=== PATIENT | male | born 1990 | race African-American/Black ===

== ENCOUNTER 2023-06-12 13:06 | Emergency (ER) | payer SELFPAY ==
[2023-06-12 14:02] VITALS: BP 117/83; PULSE 106; RESP 16; TEMP 36.4; O2SAT 96; BMI 32.5
--- NOTE | 2023-06-12 14:05 | ED.GENADULT ---
HPI - General Adult General Chief complaint: Psychiatric Symptoms Stated complaint: Depression Time Seen by Provider: 06/12/23 14:32 Source: patient Mode of arrival: ambulatory Limitations: other (Alcohol intoxication) History of Present Illness HPI narrative: 33-year-old male who presents emergency department for evaluation of depression. The patient came to the emergency department voluntarily at his 's request. He states that his mother did recently and this has made him depressed. Denies being suicidal or homicidal. He does admit to drinking alcohol by he states that he is not interested in getting into a rehab program. He did tell me that he wants to continue to drink and that he is an adult and that if he wants to drink no in can stop him. I did ask him why he came to the hospital and he told me that his insisted that he come and get some help for his depression. The patient at this time does not want to get undressed and is refusing examination. At triage, he denied auditory or visual hallucinations. The provider triage did document that the patient did call the crisis line for worsening depression and was told that respite care could be obtained through the emergency department however he does not want to stay in the emergency department this time and wants to go home. Related Data Allergies Allergy/AdvReac Type Severity Reaction Status Date / Time No Known Allergies Allergy Verified 06/12/23 14:06 Review of Systems Review of Systems: Yes all other systems are reviewed and are negative [facility] Past Medical History [facility] Narrative: Past medical history: None. Social history: The patient does admit to drinking alcohol today and drinking daily. He states that he is not from this area and that his is a traveling nurse and he is staying this area with his family while his is here working. Physical Exam ED Vital Signs: Vital Signs - 24 hr 06/12/23 14:02 Temperature 97.6 F Pulse Rate 106 H Respiratory Rate 16 Blood Pressure 117/83 Pulse Oximetry 96 Oxygen Delivery Method Room Air BMI result Body Mass Index 32.5 Vital signs were normal except for an elevated heart rate of 106. Exam: General: Awake, alert in no distress. Patient does answer questions appropriately, he does perseverate on not wanting to be here and that this is not the place where he wants to get help from Head: Normocephalic, atraumatic Chest: He does not appear to be to tachypneic or having any respiratory distress Neuro: Patient is oriented to person and place, cranial nerves appear to be intact, patient moves also extremities symmetrically, he does not have slurred speech but does appear to be intoxicated, is able to walk without any difficulty. Psych: Patient is oriented to person, he is aware that he is in a hospital and that he came here voluntarily for depression. He clearly stated that he is not suicidal or homicidal. He also states he has not tried to harm himself in the past. He states that his mother in these depressed. He admits to drinking alcohol but states that is not interested in stopping. He is aware that he is intoxicated. Course Course Course Narrative: This is an RME: Additional HPI, ROS, PE not included below will be deferred to primary provider. 33 yo m presents w/ depression states mom recently . has been having worsening depression called the crisis line and was told he would be a agood candidate for respit. Patient denies si and hi . denies a/v/t hallucination. denies medical complaints Pe- bizzare affect plan- med clearance, care team evaluation Medical Decision Making Medical Decision Making MDM Narrative: 33-year-old male who presents emergency department for evaluation of depression most likely triggered by his mother's recent . It was reported by provider at triage that the patient called the crisis line and was advised to go to the hospital and get into respite for further treatment of his depression. However since arriving in the hospital, the patient does not want to stay, he states that he wants to go home. He does admit to drinking alcohol and he is aware that he is acutely intoxicated. He adamantly denies being suicidal or homicidal and he states he has never tried to harm himself in the past. The patient is refusing further treatment. At this time, I believe that the patient is competent to make decisions despite being intoxicated and he is able to understand the consequences of his decisions in the consequences of leaving the hospital intoxicated. The patient cannot be placed on a Section 12 at this time. I did try to encourage him to stay and talk to our crisis counselors and a recovery counselor is however he is insisting on leaving therefore he was discharged. I did encourage him to follow-up with [facility] as an outpatient to try to get help with his depression and his alcohol use disorder. Differential Diagnosis Differential Diagnoses: The differential diagnosis associated with the presentation includes Differential diagnosis includes was not limited to depression, anxiety, acute alcohol intoxication, alcohol use disorder, suicidal ideation, homicidal ideation Discharge Plan Discharge Clinical Impression: Depression, Alcohol intoxication Patient Disposition: Home, Self-Care Additional Instructions: At this time, you told me that you do not want to hurt yourself or hurt anyone else therefore we cannot keep you here against your will. You do appear to be intoxicated and I recommended that you stay here till you get sober however you want to go home at this time in you understand the risks of leaving the hospital why your intoxicated Please call [facility] ([facility]) . This is an outpatient service that can help you with depression and even help you if you want to stop drinking. Follow-up with your doctor in 2 days. Please return to the emergency department if your symptoms get worse or if you develop any symptoms that are concerning to you. Interventions: [place]-Suicide Risk Severity Scale Last Done: 06/12/23 14:46 ED Discharge Assessment Last Done: 06/12/23 14:47
== END 2023-06-12 15:00 | disposition home or self-care (01) ==
LOC: HO.ED 15:02
PROVIDERS: Emergency Provider Emergency Medicine Emergency Medical Services
DX: F32.A Depression, unspecified (principal); F10.920 Alcohol use, unspecified with intoxication, uncomplicated; Y90.9 Presence of alcohol in blood, level not specified; Z72.89 Other problems related to lifestyle; Z63.4 Disappearance and death of family member
CPT/HCPCS: 99283

== ENCOUNTER 2023-06-12 21:26 | Inpatient (IN) | payer SELFPAY ==
[2023-06-12 21:41] VITALS: BP 134/65; PULSE 112; RESP 20; TEMP 36.7; O2SAT 97; BMI 31.7
--- NOTE | 2023-06-12 21:59 | ED.PSYCH ---
HPI - Psych General Chief Complaint: Psychiatric Symptoms Stated Complaint: depression, SI Time Seen by Provider: 06/12/23 21:52 Source: patient Mode of arrival: ambulatory Limitations: no limitations History of Present Illness HPI Narrative: Patient comes to the emergency room complaining of suicidal ideation, alcohol intoxication. Patient was seen here earlier today, patient refused care and left. Now his back admitting that he has suicidal thoughts. Patient states that he has no psychiatric history, patient recently lost his mother, since then, patient has had recurrent depression, has been drinking alcohol and is planning to overdose. Patient denies any falls, no injuries. Patient is visiting from out of state, patient is in [place] Related Data Allergies Allergy/AdvReac Type Severity Reaction Status Date / Time No Known Allergies Allergy Verified 06/12/23 14:06 Review of Systems Review of Systems: Constitutional : No Weight loss, No Fever, No Chills, No Night Sweats, No Fatigue, No Malaise ENT/Mouth : No Hearing loss, No Ear Pain, No Nasal Congestion, No Sinus Pain, No Hoarseness, No sore throat, No Rhinorrhea, No Swallowing Difficulty Eyes: No Eye Pain, No Swelling, No Redness, No Foreign Body, No Discharge, No Vision Changes Cardiovascular : No Chest Pain, No SOB, No Dyspnea on Exertion, No Orthopnea, No Edema, No Palpitations Respiratory : No Cough, No Sputum, No Wheezing, No Smoke Exposure, No Dyspnea Gastrointestinal : No Nausea, No Vomiting, No Diarrhea, No Constipation, No abdominal Pain, No Hematochezia, No Melena Genitourinary : no irregular bleeding, No Dysuria, No Urinary Frequency, No Hematuria, No Urinary Incontinence, No Urgency, No Flank Pain, No Urinary Flow Changes, No Hesitancy Musculoskeletal : No joint pain, No Myalgias, No Joint Swelling Skin : No Skin Lesions, No rash Neuro : No Weakness, No Numbness, No Paresthesias, No Loss of Consciousness, No Dizziness, No Headache Psych : Complaining of anxiety, depression, suicidal ideation Heme/Lymph: No Bruising, No Bleeding,No Lymphadenopathy Endocrine : No Polyuria, No Polydipsia, No Temperature Intolerance PMFSH Social History Social History Advance Directives: No Advance Directives Information Provided: No Physical Exam Vital Signs: Vital Signs: Last Vital Signs Temp 98.0 F 06/12/23 21:41 Pulse 112 H 06/12/23 21:41 Resp 20 06/12/23 21:41 BP 134/65 06/12/23 21:41 Pulse Ox 97 06/12/23 21:41 O2 Del Method Room Air 06/12/23 21:41 BMI result Body Mass Index 31.7 Const: Other: Appearance: Alert. Oriented X3. No acute distress. Intoxicated but coherent Eyes: Pupils equal, round and reactive to light. ENT: Pharynx normal. Neck: Normal inspection. Neck supple. No lymph nodes noted. No crepitus CVS: Normal heart rate and rhythm. Pulses normal. Normal S1 and S2 Respiratory: No respiratory distress. Breath sounds normal. No Wheezing. No rales Abdomen: Soft and nontender. No rigidity. No distention. Skin: Skin warm and dry. Normal skin color. Normal skin turgor. Extremities: No lower extremity edema. No Lacerations. No Rash Neuro: Oriented X 3. No motor deficit. No sensory deficit. Moving all extremities. No slurred speech. CN 2 through 12 grossly intact Psych: calm, cooperative, normal affect Course Course Course Narrative: -all of patient's labs pending -care team consult pending -patient is on a Section 12 -physician observation started at 22:00 Medical Decision Making Medical Decision Making MDM Narrative: -the care team evaluated the patient, patient is on a Section 12, going inpatient, bed search Lab Data 06/12/23 22:06 06/12/23 22:06 Labs: Lab Results 06/12/23 06/12/23 06/12/23 Range/Units 22:05 22:06 22:06 WBC 6.0 (4.8-10.8) X10*3/uL RBC 5.19 (4.60-5.80) X10*6/uL Hgb 15.2 (14.0-18.0) g/dl Hct 46.2 (42.0-52.0) % MCV 89.0 (80.0-98.0) fL MCH 29.3 (27.0-33.0) pg MCHC 32.9 (31.0-36.0) g/dl RDW 11.2 (11.0-16.0) % Plt Count 316 (160-400) X10*3/uL MPV 10.7 (9.4-12.4) fL Absolute Nucleated RBC 0.000 (0.0-0.012) X10*3/uL Nucleated RBC % (auto) 0.0 (0.0-0.2) /100WBC Sodium 141 (135-145) mmol/L Potassium 4.1 (3.3-5.1) mmol/L Chloride 106 (96-108) mmol/L Carbon Dioxide 23 (22-29) mmol/L Anion Gap 16 (12-20) BUN 12 (9-16) mg/dL Creatinine 0.97 (0.5-1.4) mg/dL Estim Creat Clear Calc 148.1 Estimated GFR > 60 Random Glucose 85 (60-115) mg/dL Calcium 9.4 (8.4-10.2) mg/dL Total Bilirubin 0.4 (0.0-1.0) mg/dL AST 21 (5-37) U/L ALT 25 (0-40) U/L Alkaline Phosphatase 50 (39-117) U/L Total Protein 7.9 (6.5-8.0) g/dL Albumin 4.6 (3.5-5.0) g/dL Urine Opiates Screen (Not Detect) Urine Fentanyl Screen (Not Detect) Ur Barbiturates Screen (Not Detect) Ur Phencyclidine Scrn (Not Detect) Ur Amphetamines Screen (Not Detect) U Benzodiazepines Scrn (Not Detect) Urine Cocaine Screen (Not Detect) U Marijuana (THC) Screen (Not Detect) Ethyl Alcohol mg/dL COVID-19 (NAIF) Negative (Negative) COVID-19 Clin Com See Note 06/12/23 06/12/23 Range/Units 22:06 22:06 WBC (4.8-10.8) X10*3/uL RBC (4.60-5.80) X10*6/uL Hgb (14.0-18.0) g/dl Hct (42.0-52.0) % MCV (80.0-98.0) fL MCH (27.0-33.0) pg MCHC (31.0-36.0) g/dl RDW (11.0-16.0) % Plt Count (160-400) X10*3/uL MPV (9.4-12.4) fL Absolute Nucleated RBC (0.0-0.012) X10*3/uL Nucleated RBC % (auto) (0.0-0.2) /100WBC Sodium (135-145) mmol/L Potassium (3.3-5.1) mmol/L Chloride (96-108) mmol/L Carbon Dioxide (22-29) mmol/L Anion Gap (12-20) BUN (9-16) mg/dL Creatinine (0.5-1.4) mg/dL Estim Creat Clear Calc Estimated GFR Random Glucose (60-115) mg/dL Calcium (8.4-10.2) mg/dL Total Bilirubin (0.0-1.0) mg/dL AST (5-37) U/L ALT (0-40) U/L Alkaline Phosphatase (39-117) U/L Total Protein (6.5-8.0) g/dL Albumin (3.5-5.0) g/dL Urine Opiates Screen Not Detected (Not Detect) Urine Fentanyl Screen Not Detected (Not Detect) Ur Barbiturates Screen Not Detected (Not Detect) Ur Phencyclidine Scrn Not Detected (Not Detect) Ur Amphetamines Screen Not Detected (Not Detect) U Benzodiazepines Scrn Not Detected (Not Detect) Urine Cocaine Screen Not Detected (Not Detect) U Marijuana (THC) Screen Not Detected (Not Detect) Ethyl Alcohol 125 mg/dL COVID-19 (NAIF) (Negative) COVID-19 Clin Com Discharge Plan Discharge Clinical Impression: Depression Patient Disposition: Still a Patient
[2023-06-12 22:00] VITALS: BP 134/65; PULSE 112; RESP 20; TEMP 36.7; O2SAT 97
[2023-06-12 22:18] LABS: Hematocrit 46.2 % (42.0-52.0); Hemoglobin 15.2 g/dl (14.0-18.0); Mean Corpuscular HGB Conc 32.9 g/dl (31.0-36.0); Mean Corpuscular Hemoglobin 29.3 pg (27.0-33.0); Mean Platelet Volume 10.7 fL (9.4-12.4); Platelet Count 316 X10*3/uL (160-400); Red Blood Count 5.19 X10*6/uL (4.60-5.80); Red Cell Distribution Width 11.2 % (11.0-16.0)
[2023-06-12 22:28] LABS: Amphetamine Screen Urine Not Detected (Not Detect); Barbiturates, Urine Not Detected (Not Detect); Benzodiazepines Screen Urine Not Detected (Not Detect); Cannabinoid Screen Urine Not Detected (Not Detect); Cocaine Screen Urine Not Detected (Not Detect); Ethanol 125 mg/dL; Fentanyl, urine Not Detected (Not Detect); Opiate Screen Urine Not Detected (Not Detect); Phencyclidine Screen Urine Not Detected (Not Detect)
[2023-06-12 22:28] LABS: COVID-19 Test Negative (Negative); IDNOW Serial# BCCEAD1C
[2023-06-12 22:30] LABS: Alanine Aminotransferase 25 U/L (0-40); Albumin Level 4.6 g/dL (3.5-5.0); Alkaline Phosphatase 50 U/L (39-117); Anion Gap 16 (12-20); Aspartate Amino Transferase 21 U/L (5-37); Bilirubin Total 0.4 mg/dL (0.0-1.0); Blood Urea Nitrogen 12 mg/dL (9-16); Calcium 9.4 mg/dL (8.4-10.2); Carbon Dioxide 23 mmol/L (22-29); Chloride 106 mmol/L (96-108); Creatinine Clr Calc Pharmacy 148.1; Estimated Glomerular Filt Rate > 60; Glucose Random 85 mg/dL (60-115); Potassium 4.1 mmol/L (3.3-5.1); Sodium 141 mmol/L (135-145); Total Protein 7.9 g/dL (6.5-8.0)
[2023-06-13 00:38] LABS: MANUAL DIFF FLAG NO
[2023-06-13 00:41] LABS: Basophils Percent Auto 0.3 % (0-2); Eosinophils Absolute Auto 0.1 X10*3/uL (0.0-0.4); Eosinophils Percent Auto 1.7 % (0-4); Imm Gran Abs Auto 0.03 X10*3/uL (0.00-0.03); Imm Gran Pct Auto 0.5 % (0.0-0.4); Lymphocytes Absolute Auto 2.9 X10*3/uL (1.2-4.9); Lymphocytes Percent Auto 49.1 % (20-40); Monocytes Absolute Auto 0.4 X10*3/uL (0.1-1.2); Monocytes Percent Auto 6.7 % (2-11); Neutrophils Absolute Auto 2.5 x10*3/uL (2.0-8.3); Neutrophils Percent Auto 41.7 % (45-73)
[2023-06-13 00:53] LABS: Bilirubin Direct 0.1 mg/dL (0.0-0.5)
[2023-06-13 06:22] VITALS: BP 118/58; PULSE 81; RESP 17; TEMP 36.4; O2SAT 97
--- NOTE | 2023-06-13 06:24 | PC.NURSE ---
PT arrived via waiting room triage. PT endorsing SI with a plan to OD and state he had several of hard liquor drinks before admission. PT states he has been depressed since his mother's passing. 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 Upon reassessment, pt denied any current SSI. PT changed over into hosptial attire, belongings secured, 15 mins check initiated and diet order place. Care team assessed PT and will be recommending inpatient.
--- NOTE | 2023-06-13 12:00 | PC.NURSE ---
pt seen by Care Team, plan is to admit to M3. pt aware and agrees with plan.
--- NOTE | 2023-06-13 16:05 | PC.NURSE ---
nurse to nurse report given to MIC Leal.
[2023-06-13 16:50] VITALS: BP 130/75; PULSE 83; RESP 19; TEMP 36.3; O2SAT 100
--- NOTE | 2023-06-13 17:43 | PC.ADMIT ---
Lucius is a 33-year-old male admitted from [facility] pod to M3 at 1729 on a CV for treatment of major depressive disorder and alcohol use disorder. Tox screen negative, ETOH 125. Pt reports using cannabis and percocets, drinks a pint of vodka daily and had a few shots last evening. Upon arrival to the unit, pt was agitated and irritable with being here and frustrated at the policies regarding his belongings. Pt refused vitals. Pt stated you're harming people more than you're helping people. Pt declined to participate in admission process and declined to sign legals. Pt's is the one who brought him to the ED but he doesn't want any information released to her at this time. Per crisis eval, pt presented to the ED for depression and suicidal ideation with plan to overdose on pills. Pt's mom recently two weeks ago which has worsened his depression and SI.
[2023-06-13 20:50] VITALS: BP 125/68; PULSE 92; RESP 18; TEMP 36.4; O2SAT 97
--- NOTE | 2023-06-14 03:46 | PC.NURSE ---
patient has refused VS and CIWA assessment x 2. approached when OOB. when patient asked why assessments needed to be done stated ''I only drank a little before I came in'' ''I'm fine'' ''I don't need that''
[2023-06-14] MEDS: Thiamine HCL 100 MG TABLET PO (09:24)
--- NOTE | 2023-06-14 10:03 | P.HPPS_ITS ---
HPI Date of Service: 06/14/23 Chief Complaint: depression, SI Additional Sources of Information: The patient was seen at 11:00 this morning the patient did sign a conditional voluntary stated he just wanted to leave the. Did state when he signed a conditional voluntary he was asking for help. A 3 day notice was again explained to him HPI Subjective Notes: Conditional Voluntary and 3 Day Narrative: The patient is quite guarded just focused on wanting to leave stating he change his mind about wanting help. He apparently has been quite ambivalent he been seen in the emergency room on 2 occasions on the same day. He reportedly had been intoxicated CBC Chem profile the emergency room were unremarkable blood alcohol level 125 Patient did state in the emergency room that he had been increasingly depressed since the his mother had been drinking heavily over the past few months. No stated he then smoked marijuana and occasionally to Percocets. The patient is stated he would have thoughts to overdose and had wanted to . This information is from the care team evaluation. At present patient is that he had driven from [place] to visit a friend who is in [place]. States he does not have the phone number for his and does not have his phone with him patient has not previously sought treatment Past Psychiatric History: Patient denies prior to treatment but does in the care team about describe a history depression fatigue self-medication with alcohol Percocets reportedly. 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 [employer] came here with her Patient's mother 2 weeks ago he would not go into that he tells but is worsened his depression question guilt thoughts of self-harm has lived in [place] owns his own [employer] business Substance History: Reported history of daily alcohol use no prior detox Percocet use Trauma History: Unable to ascertain Diagnostics Vital Signs (24Hr): Vital Signs - 24 hr 06/13/23 16:50 06/13/23 20:50 Temperature 97.3 F 97.6 F Pulse Rate 83 92 Respiratory Rate 19 18 Blood Pressure 130/75 125/68 Pulse Oximetry 100 97 Oxygen Delivery Method Room Air Room Air BMI result Body Mass Index 31.7 Labs 06/12/23 22:06 06/12/23 22:06 Labs: Laboratory Results - last 48 hr 06/12/23 06/12/23 06/12/23 22:05 22:06 22:06 WBC 6.0 RBC 5.19 Hgb 15.2 Hct 46.2 MCV 89.0 MCH 29.3 MCHC 32.9 RDW 11.2 Plt Count 316 MPV 10.7 Immature Gran % (Auto) 0.5 H Neut % (Auto) 41.7 L Lymph % (Auto) 49.1 H [place] % (Auto) 6.7 Eos % (Auto) 1.7 Baso % (Auto) 0.3 Lymph # (Auto) 2.9 [place] # (Auto) 0.4 Eos # (Auto) 0.1 Baso # (Auto) 0.0 Abs Immat Gran (auto) 0.03 Absolute Neuts (auto) 2.5 Absolute Nucleated RBC 0.000 Nucleated RBC % (auto) 0.0 Sodium 141 Potassium 4.1 Chloride 106 Carbon Dioxide 23 Anion Gap 16 BUN 12 Creatinine 0.97 Estim Creat Clear Calc 148.1 Estimated GFR > 60 Random Glucose 85 Calcium 9.4 Total Bilirubin 0.4 Direct Bilirubin 0.1 AST 21 ALT 25 Alkaline Phosphatase 50 Total Protein 7.9 Albumin 4.6 Urine Opiates Screen Urine Fentanyl Screen Ur Barbiturates Screen Ur Phencyclidine Scrn Ur Amphetamines Screen U Benzodiazepines Scrn Urine Cocaine Screen U Marijuana (THC) Screen Ethyl Alcohol COVID-19 (NAIF) Negative COVID-19 Clin Com See Note 06/12/23 06/12/23 22:06 22:06 WBC RBC Hgb Hct MCV MCH MCHC RDW Plt Count MPV Immature Gran % (Auto) Neut % (Auto) Lymph % (Auto) [place] % (Auto) Eos % (Auto) Baso % (Auto) Lymph # (Auto) [place] # (Auto) Eos # (Auto) Baso # (Auto) Abs Immat Gran (auto) Absolute Neuts (auto) Absolute Nucleated RBC Nucleated RBC % (auto) Sodium Potassium Chloride Carbon Dioxide Anion Gap BUN Creatinine Estim Creat Clear Calc Estimated GFR Random Glucose Calcium Total Bilirubin Direct Bilirubin AST ALT Alkaline Phosphatase Total Protein Albumin Urine Opiates Screen Not Detected Urine Fentanyl Screen Not Detected Ur Barbiturates Screen Not Detected Ur Phencyclidine Scrn Not Detected Ur Amphetamines Screen Not Detected U Benzodiazepines Scrn Not Detected Urine Cocaine Screen Not Detected U Marijuana (THC) Screen Not Detected Ethyl Alcohol 125 COVID-19 (NAIF) COVID-19 Clin Com Meds/Allergies Allergies Allergies Allergy/AdvReac Type Severity Reaction Status Date / Time No Known Allergies Allergy Verified 06/12/23 14:06 Mental Status Exam Mental Status Exam Narrative: Mental Status Exam Narrative: Appearance: Casually dressed anxious in appearance Behavior: psychomotor: Pacing periods of agitation Speech: Somewhat pressured Form of thought patient fixed perseverative unable or unwilling to give clear history Thought content: A focusing and feeling sad regarding his mother's he denies stating he wanted to harm himself I just want to get back to [place] He did state that he had signed a conditional voluntary did want help but ?did not know it be like this Mood: Depressed irritable anxious Affect: Labile easily agitated SI:norah presently denied making those statements HI:denies VH/AH:none Delusions: Insight/judgment: Poor as evidence by seeking help then impulsively leaving will not engage in dialogue in spite of recent behavior and problematic statements. Reportedly he had come here in with his stating he staying friend. Guarded they giving inconsistent answers Memory/cog: Assessment & Plan Assessment & Plan (1) Major depression, melancholic type: Status: Acute Code(s): F32.9 - Major depressive disorder, single episode, unspecified (2) Alcohol use disorder: Status: Acute Code(s): F10.90 - Alcohol use, unspecified, uncomplicated (3) Depression with suicidal ideation: Status: Acute Code(s): F32.A - Depression, unspecified; R45.851 - Suicidal ideations Plan Patient is a 33-year-old male admitted on a conditional voluntary quite ambivalent impulsive obviously going through a significant problematic emotional state reported depressive symptoms thoughts of self-harm now denying. Seems like the patient feels trapped scan indicated on 3 day notice which he did place. He is refusing vital signs. States he does not know his 's phone number year unable of present time to get any collateral regarding patient's risk reported history of depression and suicidal statements while in the em ergency room then denying everything. Patient refusing vital signs he was not tremulous or ataxic explain to him options for treatment he was just focused on leaving but could not really explain his behavior. Was difficult to engage Ativan ordered for detox but also ordered for anxiety difficult to make a full risk assessment at this time explained to patient that we have an obligation to help maintain his safety hand had up to 3 business days to try and figure this out with him Mirtazapine ordered at HS Patient educated on: therapeutic strategies and other (Therapeutic process) Guardian/Caregiver educated on: diagnosis and other (Treatment process safety) Informed Consent: further education needed Reason for continued inpatient stay Substantial Risk for: harm to self and rapid decompensation Statement Statement: I have reviewed the history and physical and performed a pertinent examination on my patient. No changes have occurred unless specified. If the History and Physical was not performed prior to admission, the Hospitalist's service will be consulted for completing the admission physical. Time Spent With Patient Time: Total time managing care of this patient today ____ minutes.
--- NOTE | 2023-06-14 15:42 | PC.NURSE ---
Pt refused labs, Asif aware.
[2023-06-14] MEDS: Mirtazapine 7.5 MG TABLET PO (22:37)
[2023-06-14 22:40] VITALS: BP 137/66; PULSE 85; RESP 18; TEMP 36.2; O2SAT 95
[2023-06-15 00:22] VITALS: RESP 16
[2023-06-15 04:38] VITALS: RESP 16
--- NOTE | 2023-06-15 10:53 | PM.PSYDC ---
DS: Providers Provider Date of Service: 06/15/23 Date of admission: 06/13/23 16:46 Primary care physician: Unknown Physician DS: Diagnosis Discharge Diagnosis (1) Major depression, melancholic type: Status: Deleted (2) Alcohol use disorder: Status: Acute (3) Depression with suicidal ideation: Status: Deleted Mental Status Exam Mental Status Exam Narrative: Mental Status Exam Narrative: Appearance: Casually dressed anxious in appearance Behavior: psychomotor: Pacing periods of agitation Speech: Somewhat pressured Form of thought patient fixed perseverative unable or unwilling to give clear history Thought content: A focusing and feeling sad regarding his mother's he denies stating he wanted to harm himself I just want to get back to [place] He did state that he had signed a conditional voluntary did want help but ?did not know it be like this Mood: Depressed irritable anxious Affect: Labile easily agitated SI:norah presently denied making those statements HI:denies VH/AH:none Delusions: Insight/judgment: Poor as evidence by seeking help then impulsively leaving will not engage in dialogue in spite of recent behavior and problematic statements. Reportedly he had come here in with his stating he staying friend. Guarded they giving inconsistent answers Memory/cog: Data Data Completed and Pending Completed studies during hospitalization [Text1]: 06/12/23 06/12/23 06/12/23 22:05 22:06 22:06 WBC 6.0 RBC 5.19 Hgb 15.2 Hct 46.2 MCV 89.0 MCH 29.3 MCHC 32.9 RDW 11.2 Plt Count 316 MPV 10.7 Immature Gran % (Auto) 0.5 H Neut % (Auto) 41.7 L Lymph % (Auto) 49.1 H [place] % (Auto) 6.7 Eos % (Auto) 1.7 Baso % (Auto) 0.3 Lymph # (Auto) 2.9 [place] # (Auto) 0.4 Eos # (Auto) 0.1 Baso # (Auto) 0.0 Abs Immat Gran (auto) 0.03 Absolute Neuts (auto) 2.5 Absolute Nucleated RBC 0.000 Nucleated RBC % (auto) 0.0 Sodium 141 Potassium 4.1 Chloride 106 Carbon Dioxide 23 Anion Gap 16 BUN 12 Creatinine 0.97 Estim Creat Clear Calc 148.1 Estimated GFR > 60 Random Glucose 85 Calcium 9.4 Total Bilirubin 0.4 Direct Bilirubin 0.1 AST 21 ALT 25 Alkaline Phosphatase 50 Total Protein 7.9 Albumin 4.6 Urine Opiates Screen Urine Fentanyl Screen Ur Barbiturates Screen Ur Phencyclidine Scrn Ur Amphetamines Screen U Benzodiazepines Scrn Urine Cocaine Screen U Marijuana (THC) Screen Ethyl Alcohol COVID-19 (NAIF) Negative COVID-19 Clin Com See Note 06/12/23 06/12/23 22:06 22:06 WBC RBC Hgb Hct MCV MCH MCHC RDW Plt Count MPV Immature Gran % (Auto) Neut % (Auto) Lymph % (Auto) [place] % (Auto) Eos % (Auto) Baso % (Auto) Lymph # (Auto) [place] # (Auto) Eos # (Auto) Baso # (Auto) Abs Immat Gran (auto) Absolute Neuts (auto) Absolute Nucleated RBC Nucleated RBC % (auto) Sodium Potassium Chloride Carbon Dioxide Anion Gap BUN Creatinine Estim Creat Clear Calc Estimated GFR Random Glucose Calcium Total Bilirubin Direct Bilirubin AST ALT Alkaline Phosphatase Total Protein Albumin Urine Opiates Screen Not Detected Urine Fentanyl Screen Not Detected Ur Barbiturates Screen Not Detected Ur Phencyclidine Scrn Not Detected Ur Amphetamines Screen Not Detected U Benzodiazepines Scrn Not Detected Urine Cocaine Screen Not Detected U Marijuana (THC) Screen Not Detected Ethyl Alcohol 125 COVID-19 (NAIF) COVID-19 Clin Com DS: Summary Hospital Course Hospital Course: per 06/14 admission note: The patient was seen at 11:00 this morning the patient did sign a conditional voluntary stated he just wanted to leave the. Did state when he signed a conditional voluntary he was asking for help. A 3 day notice was again explained to him HPI Subjective Notes: Conditional Voluntary and 3 Day Narrative: The patient is quite guarded just focused on wanting to leave stating he change his mind about wanting help. He apparently has been quite ambivalent he been seen in the emergency room on 2 occasions on the same day. He reportedly had been intoxicated CBC Chem profile the emergency room were unremarkable blood alcohol level 125 Patient did state in the emergency room that he had been increasingly depressed since the his mother had been drinking heavily over the past few months. No stated he then smoked marijuana and occasionally to Percocets. The patient is stated he would have thoughts to overdose and had wanted to . This information is from the care team evaluation. At present patient is that he had driven from [place] to visit a friend who is in [place]. States he does not have the phone number for his and does not have his phone with him patient has not previously sought treatment Past Psychiatric History: Patient denies prior to treatment but does in the care team about describe a history depression fatigue self-medication with alcohol Percocets reportedly. 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 Time Spent with Patient Time attestation: Total time managing care of this patient today ____ minutes. Time spent: Less than 30 minutes Discharge Plan Discharge Anticipated Discharge Date/Time: 06/15/23 10:48 Patient Disposition: Home, Self-Care Discharge Diagnosis: Adjustment Disorder Alcohol Use Disorder Referrals: PhysicianLukasz [Primary Care Provider] - 1 Week Discharge Orders: Discharge Order (Routine); Ordered 06/15/23 Ordered By: Braden Gordon Diet: Advance to usual diet Activity on Discharge: As tolerated Stand Alone Forms: Patient Portal Discharge page, Community Support Care Plan Goals: remain safe, stable, and sober in the outpatient treatment setting Health Concerns: potential for medical complications of alcohol withdrawal, including hypertension with end-organ damage as well as stroke and head trauma with sequelae. Plan of Treatment: pt was advised to seek out psychotherapy after discharge in order to process the loss of his mother. Assessment: not at imminent risk of harm to self or others. appears to have capacity to leave hospital AMA and to decline medical detox. Discharge Date/Time: 06/15/23 11:15
== END 2023-06-15 11:15 | disposition home or self-care (01) | DRG 881 ==
LOC: HO.ED 06-13 07:08 → HO.PADLT16 06-13 16:51
PROVIDERS: Emergency Medicine; Admitting Provider Psychiatry & Neurology Psychiatry; Emergency Provider Emergency Medicine Emergency Medical Services; Visit Provider Psychiatry & Neurology Psychiatry
DX: F32.9 Major depressive disorder, single episode, unspecified (principal); R45.851 Suicidal ideations; F17.210 Nicotine dependence, cigarettes, uncomplicated; Z71.6 Tobacco abuse counseling; Y90.6 Blood alcohol level of 120-199 mg/100 ml; F43.20 Adjustment disorder, unspecified; F10.129 Alcohol abuse with intoxication, unspecified; Z20.822 Contact with and (suspected) exposure to COVID-19
CPT/HCPCS: 36415; 80053; 80307; 82248; 85025; 85027; 87635; 99285; S9485

== ENCOUNTER → 2023-06-13 16:46 | Outpatient (BNV) | payer SELFPAY | PROVIDERS: Admitting Provider Psychiatry & Neurology Psychiatry; Emergency Provider Emergency Medicine Emergency Medical Services; Visit Provider Psychiatry & Neurology Psychiatry | DX: F32.9 Major depressive disorder, single episode, unspecified (principal); F10.90 Alcohol use, unspecified, uncomplicated; F32.A Depression, unspecified; R45.851 Suicidal ideations | CPT/HCPCS: 90792 ==

== ENCOUNTER → 2023-06-13 16:46 | Outpatient (BNV) | payer SELFPAY | PROVIDERS: Admitting Provider Psychiatry & Neurology Psychiatry; Emergency Provider Emergency Medicine Emergency Medical Services; Visit Provider Psychiatry & Neurology Psychiatry | DX: F33.2 Major depressive disorder, recurrent severe without psychotic features (principal); R45.851 Suicidal ideations; F10.90 Alcohol use, unspecified, uncomplicated | CPT/HCPCS: 99238 ==